=== PATIENT | female | born 1955 | race Caucasian/White ===

== ENCOUNTER → 2016-07-05 | Outpatient (CLI) | payer BC ==
--- NOTE | 2016-07-05 15:55 | HKNOTE ---
DATE OF SERVICE: 07/05/2016 SUBJECTIVE: A 60-year-old female who presents today for postoperative visit 6 months status post left total hip replacement on 11/25/2015. Since patient was last seen, she denies any pain complaints. The patient denies any calf pain, shortness of breath or chest pain. The patient states that surgery was a significant success as she has no pain and feels that she is back to normal function. The patient has been walking independently 3 to 4 weeks after discharge from hospital. She feels that she can walk any distance without any limitation. VITAL SIGNS: Blood pressure is 143/78, temperature 98.2 degrees, pulse is 71, respiratory rate is 12, height 5 feet 9 inches, weight is 171 pounds. PHYSICAL EXAMINATION: The patient is alert, oriented, and in no acute distress. Gait is normal and nonantalgic. Wound is well with well-healed surgical scarring. Range of motion is 0 to 130 degrees with extension/flexion. No tenderness to palpation. 5/5 strength to the hip flexors, extensors as well as adductors and abductors. Normal sensory examination to light touch throughout the left lower extremity. IMAGING: X-ray performed on 07/05/2016 of the left hip showing all components of prosthesis well aligned and prosthesis appears to be well attached and integrated to the bone. No signs of any lucency between metal and bone. ASSESSMENT AND PLAN: Antibiotic card was given again as patient has lost hers. Dental prophylaxis discussed again in detail. Prescription for amoxicillin 500 mg with instructions to take 4 tablets p.o. prior to dental procedure, #20 tablets provided today so patient may have extra for the future. May continue with no restrictions. At this stage, patient has been doing well status post surgery. The patient considers surgery a great success. She may follow up on as needed basis. The patient was seen with Dr. Moyer and he agrees with plan. The patient was given our standard plastic card containing instructions for the use of prophylactic antibiotics as a guideline should infection develop anywhere in the body, there be the need for manipulation or scoping of the genitourinary tract or gastrointestinal tract, or for prophylaxis for dentistry. These instructions pertain for the rest of the patient's life. Dictated By: REYNALDO PERALTA for SHIV MOYER MD, KP/MARSHA Conf#: [id number] [facility]#: [id number] MTDD
--- NOTE | 2016-07-05 18:26 | RADRPT ---
PROCEDURE: XR Left Hip and pelvis. CLINICAL INDICATION: Left hip pain. Pelvic pain. Postop. TECHNIQUE: Three views. Frontal pelvis. Frontal and lateral left hip. COMPARISON: 01/10/2016. FINDINGS: There is no fracture or dislocation. The soft tissues are normal. There is a left hip total arthroplasty which appears satisfactory. There are mild degenerative changes of the right hip with osteophytes noted. There is no lytic or blastic lesion. The upper pelvis is not included on the image. IMPRESSION: 1. Satisfactory postoperative appearance of the left hip. 2. Mild degenerative changes of the right hip. RPTAT: QQ .Rizwan Morris MD, MD Date Time Electronically viewed and signed by .Rizwan Morris MD, on 07/05/2016 18:26 .R/
== END | disposition home or self-care (01) ==
LOC: HKI 14:41
DX: Z47.1 Aftercare following joint replacement surgery (principal); Z96.642 Presence of left artificial hip joint
CPT/HCPCS: 73502; G0463